=== PATIENT | female | born 1980 ===

== ENCOUNTER 2018-04-12 08:40 | Day surgery (SDC) | payer OTHER ==
[~2018-04-12 08:40] MED LIST: SYNTHROID175 MCG PO
[2018-04-12] MEDS ORDERED: NAPROXEN SODIU550 M1 PO (18:31)
== END 2018-04-12 20:10 | disposition home or self-care (01) ==
LOC: CIR.AMB 08:40
DX: N84.0 Polyp of corpus uteri (principal); D25.0 Submucous leiomyoma of uterus; N72 Inflammatory disease of cervix uteri

== ENCOUNTER 2022-05-12 06:22 | Day surgery (SDC) | payer OTHER ==
[~2022-05-12] VITALS: Ht 170.2 cm; Wt 73.5 kg
[~2022-05-12 06:22] MED LIST changes: +NAPROXEN SODIU550 M1 PO; +SYNTHROID150 MCG PO
[2022-05-12] MEDS ORDERED: IBU600 MG PO (11:23)
== END 2022-05-12 13:45 | disposition home or self-care (01) ==
LOC: CIR.AMB 06:22
PROVIDERS: ATTEND Obstetrics & Gynecology Gynecology
DX: N84.0 Polyp of corpus uteri (principal); Z20.822 Contact with and (suspected) exposure to COVID-19; E03.9 Hypothyroidism, unspecified; Z86.16 Personal history of COVID-19